=== PATIENT | female | born 2005 | race Caucasian/White ===

== ENCOUNTER 2024-02-14 14:40 | Emergency (ER) | payer SELFPAY ==
[~2024-02-14] VITALS: Ht 167.6 cm; Wt 60.0 kg
[2024-02-14 15:03] VITALS: BP 100/52; PULSE 78; RESP 16; TEMP 98.8; O2SAT 100
[2024-02-14] MEDS ORDERED: CEFTRIAXONE SODIUM 500MG VIAL IM ONE (15:30)
[2024-02-14] MEDS ORDERED: DOXY100C5 MT (16:04)
[2024-02-14] MEDS: CEFTRIAXONE SODIUM 500MG VIAL IM NR (17:15)
== END 2024-02-14 18:05 | disposition home or self-care (01) ==
LOC: ER 14:40
DX: Z13.9 Encounter for screening, unspecified (principal)
CPT/HCPCS: 99283; 87491; 87591; 81025; 96372; J0696